=== PATIENT | female | born 1965 | race Caucasian/White ===

== ENCOUNTER 2017-09-07 20:15 | Observation (INO) ==
--- NOTE | 2017-09-07 20:47 | Emergency Department Note ---
Disposition Clinical Impression: Chest pain, Elevated lipase, Syncope, Smoker, Family history of coronary artery disease in mother, History of hypertension, Abnormal EKG, Obesity Disposition: Admitted As Inpatient Referrals: NONE,PCP [Non-Partnered Physician] - [facility] [Outside] Forms: ED Satisfaction Letter General Adult HPI - General Chief complaint: ED Chest Pain Stated complaint: chest pain - History of Present Illness HPI Narrative: 52-year-old female reports emergency department complaining of left-sided chest pain. The chest pain had been sharp. It was brief and has resolved. She was working when it started. She reports she works "[email or web address]". The patient has no known history of coronary artery disease, COPD, emphysema, malignancy, DVT PE or cancer, no history of aneurysms, no history of diabetes hypercholesterolemia or intrathoracic Path [place]. The patient is a smoker. She reports she is concerned about her primary care physician not listening to her complaints. She reports in the past she had had bilateral paresthesias and that the patient did not receive a definitive diagnosis. There is no history of paresthesia today, no troubles walking talking hearing seeing or speaking. No chest trauma fever coughing of blood or syncope. No leg swelling or pain. There is no history of trauma or rash. No upper respiratory symptoms ear pain runny nose or sore throat. No flank pain no urinary symptoms no history of currently. The patient denies acute depression or anxiety. There is no history of suicidality or homicidality. The patient has had no abdominal pain vomiting or diarrhea. No back pain. She has not anticoagulated. She reports she saw her primary care physician this week and was checked for UTI and the urine was negative. There is a history of syncope about a week ago, no trauma. The patient is a smoker, has a history of hypertension, and her mother had early coronary artery disease. - Related Data Previous Rx's Medication Instructions Recorded Ciprofloxacin HCl [Cipro] 500 mg PO BID #20 tablet 11/15/16 Naproxen [Naprosyn] 500 mg PO BID PRN #30 tablet 11/15/16 Ondansetron ODT [Zofran ODT] 4 mg SL Q6HR #14 tab.rapdis 11/15/16 Tamsulosin [Flomax] 0.4 mg PO DAILY #10 capsule 11/15/16 Allergies Allergy/AdvReac Type Severity Reaction Status Date / Time Penicillins [PCN] Allergy Rash Verified 11/15/16 18:15 All systems ED: reviewed and negative except as stated. Past Medical History - Past Medical History Medical history: Reports: hypertension Psychiatric history: Reports: anxiety, depression - Social History Smoking Status: Current every day smoker Smokeless Tobacco Status: No Alcohol use: Reports: none Drug use: Reports: none Physical Exam - General Limitations: no limitations General appearance: alert, in no apparent distress - Head Head exam: atraumatic, normocephalic, normal inspection - Eye Eye exam: Present: normal appearance, PERRL, EOMI - ENT ENT exam: normal exam, normal oropharynx, mucous membranes moist - Neck Neck exam: Present: normal inspection, full ROM, trachea midline - Chest Chest inspection: Present: normal inspection, symmetric chest wall rise. Absent : tenderness - Respiratory Respiratory exam: Present: normal lung sounds bilaterally. Absent: respiratory distress, wheezes, accessory muscle use, prolonged expiratory phase - Cardiovascular Cardiovascular exam: Present: regular rate, normal rhythm, normal heart sounds - Abdominal Exam Abdominal exam: Present: soft, Non-Tender, normal bowel sounds. Absent: tenderness, distention, guarding, rebound, rigidity, pulsatile mass - Extremities Exam Extremities exam: Present: normal inspection, full ROM, normal capillary refill. Absent: tenderness, pedal edema, joint swelling, calf tenderness - Expanded Lower Extremity Exam Lower leg exam: Absent: Homans' sign Neurovascular/Tendon exam: Present: normal capillary refill. Absent: motor deficit, sensory deficit, tendon deficit, extremity cold to touch, pallor - Back Exam Back exam: Present: normal inspection, full ROM. Absent: tenderness, CVA tenderness (R), CVA tenderness (L), vertebral tenderness - Neurological Exam Neurological exam: Present: alert, oriented X3, CN II-XII intact. Absent: motor sensory deficit - Psychiatric Psychiatric exam: Present: normal affect, normal mood - Skin Skin exam: Present: warm, dry, intact, normal color. Absent: rash, cyanosis, diaphoresis, erythema, pallor, mottled Course Vital Signs Temperature 97.8 F 09/07/17 20:59 Pulse Rate 60 09/07/17 20:59 Respiratory Rate 16 09/07/17 20:59 Blood Pressure 115/83 09/07/17 20:59 O2 Sat by Pulse Oximetry 95 09/07/17 20:59 Temperature 98.7 F 09/07/17 20:59 Pulse Rate 60 09/07/17 20:59 Respiratory Rate 16 09/07/17 20:59 Blood Pressure 115/83 09/07/17 20:59 O2 Sat by Pulse Oximetry 95 09/07/17 20:59 Oxygen Delivery Oxygen Delivery Room Air Medical Decision Making - MDM Narrative Medical decision making narrative: On review of the patient's record and EMS record and secondary review with the patient, she describes left chest pain radiating to the neck, it was sharp but was during work activity time. The patient also had a recent syncopal event. The patient has had no recent cardiac testing. She had a remote stress test years ago. The patient family history includes mother with early coronary artery disease. Based on the patient's chest pain, abnormal EKG, history of syncope, early coronary disease in the family/mother, history of hypertension, age, obesity, and nicotine dependence, I thought it would be appropriate to admit the patient to the hospital for observation. Aspirin has been ordered. Of note her lipase is also elevated which may be contributory or an independent factor concerning for intra-abdominal process. I discussed the case with the hospitalist on-call who has accepted the patient to their care. They have requested an ultrasound of the gallbladder. An order has been placed. Further evaluation per the admitting service. - Lab Data Lab results reviewed: Yes I reviewed the patient's lab results. Result diagrams: 09/07/17 21:23 09/07/17 21:23 Lab Results 09/07/17 09/07/17 09/07/17 Range/Units 21:23 21:23 21:23 WBC 8.8 (4.3-11.1) K/mcL RBC 3.87 (3.82-4.97) M/mcL Hgb 12.5 (11.5-15.4) g/dL Hct 37.3 (35.3-44.9) % MCV 96.4 (83.0-100.0) fL MCH 32.3 (28.0-33.3) pg MCHC 33.5 (31.6-35.5) g/dL RDW 12.9 (11.5-14.5) % Plt Count 214 (140-400) K/mcL MPV 8.9 L (9.4-12.4) fL Immature Gran % 0.2 (0-4) % Seg Neutrophils % 53.9 % Lymphocytes % 36.9 % Monocytes % 6.5 % Eosinophils % 2.2 % Basophils % 0.3 % Neutrophils # 4.8 (1.6-8.9) K/mcL Lymphocytes # 3.3 (0.6-4.6) K/mcL Monocytes # 0.6 (0.0-1.3) K/mcL Eosinophils # 0.2 (0.0-0.6) K/mcL Basophils # 0.0 (0.0-0.2) K/mcL PT 10.7 (9.4-12.1) Seconds INR 1.0 APTT 34.3 (26.0-36.0) Seconds D-Dimer (0-500) ng/mLFEU Sodium 141 (136-145) mEq/L Potassium 4.0 (3.5-4.5) mEq/L Chloride 112 H (98-109) mEq/L Carbon Dioxide 23 (19-29) mEq/L BUN 22 H (7-20) mg/dL Creatinine 0.79 (0.57-1.11) mg/dL Est GFR ( Amer) > 60 (> 60) Est GFR (Non-Af Amer) > 60 (> 60) BUN/Creatinine Ratio 28 H (6-26) Glucose 105 H (70-99) mg/dL Calculated Osmolality 296 (280-300) Calcium 8.4 L (8.6-10.8) mg/dL Total Bilirubin 0.2 (0.2-1.2) mg/dL Direct Bilirubin 0.1 (0.0-0.5) mg/dL Indirect Bilirubin 0.1 (0.0-1.2) mg/dL AST 17 (5-34) Units/L ALT 12 (0-55) Units/L Alkaline Phosphatase 84 (38-126) Units/L Troponin I (0-0.03) ng/mL C-Reactive Protein 5 H (Less than 5) mg/L Serum Total Protein 6.4 (6.0-8.3) g/dL Albumin 3.5 (3.5-5.0) g/dL Globulin 2.9 (2.4-3.5) g/dL Albumin/Globulin Ratio 1.2 (1.1-2.2) Lipase 114 H (8-78) Units/L 09/07/17 09/07/17 Range/Units 21:23 Unknown WBC (4.3-11.1) K/mcL RBC (3.82-4.97) M/mcL Hgb (11.5-15.4) g/dL Hct (35.3-44.9) % MCV (83.0-100.0) fL MCH (28.0-33.3) pg MCHC (31.6-35.5) g/dL RDW (11.5-14.5) % Plt Count (140-400) K/mcL MPV (9.4-12.4) fL Immature Gran % (0-4) % Seg Neutrophils % % Lymphocytes % % Monocytes % % Eosinophils % % Basophils % % Neutrophils # (1.6-8.9) K/mcL Lymphocytes # (0.6-4.6) K/mcL Monocytes # (0.0-1.3) K/mcL Eosinophils # (0.0-0.6) K/mcL Basophils # (0.0-0.2) K/mcL PT (9.4-12.1) Seconds INR APTT (26.0-36.0) Seconds D-Dimer 317 (0-500) ng/mLFEU Sodium (136-145) mEq/L Potassium (3.5-4.5) mEq/L Chloride (98-109) mEq/L Carbon Dioxide (19-29) mEq/L BUN (7-20) mg/dL Creatinine (0.57-1.11) mg/dL Est GFR ( Amer) (> 60) Est GFR (Non-Af Amer) (> 60) BUN/Creatinine Ratio (6-26) Glucose (70-99) mg/dL Calculated Osmolality (280-300) Calcium (8.6-10.8) mg/dL Total Bilirubin (0.2-1.2) mg/dL Direct Bilirubin (0.0-0.5) mg/dL Indirect Bilirubin (0.0-1.2) mg/dL AST (5-34) Units/L ALT (0-55) Units/L Alkaline Phosphatase (38-126) Units/L Troponin I 0.00 (0-0.03) ng/mL C-Reactive Protein (Less than 5) mg/L Serum Total Protein (6.0-8.3) g/dL Albumin (3.5-5.0) g/dL Globulin (2.4-3.5) g/dL Albumin/Globulin Ratio (1.1-2.2) Lipase (8-78) Units/L - Radiology Data Radiology results reviewed: Yes I reviewed the patient's radiology results.
[2017-09-07 21:31] LABS: Basophils % 0.3 %; Eosinophils # 0.2 K/mcL (0.0-0.6); Eosinophils % 2.2 %; Hematocrit 37.3 % (35.3-44.9); Hemoglobin 12.5 g/dL (11.5-15.4); Immature Granulocytes % 0.2 % (0-4); Lymphocytes # 3.3 K/mcL (0.6-4.6); Lymphocytes % 36.9 %; Mean Corpuscular HGB Conc 33.5 g/dL (31.6-35.5); Mean Corpuscular Hemoglobin 32.3 pg (28.0-33.3); Mean Corpuscular Volume 96.4 fL (83.0-100.0); Mean Platelet Volume 8.9 fL (9.4-12.4); Monocytes # 0.6 K/mcL (0.0-1.3); Monocytes % 6.5 %; Neutrophils # 4.8 K/mcL (1.6-8.9); Platelet Count 214 K/mcL (140-400); Red Blood Count 3.87 M/mcL (3.82-4.97); Red Cell Distribution Width 12.9 % (11.5-14.5); Segmented Neutrophils % 53.9 %
[2017-09-07 21:37] LABS: Prothrombin Time 10.7 Seconds (9.4-12.1)
[2017-09-07 21:39] LABS: Activated Partial Thrombo Time 34.3 Seconds (26.0-36.0)
[2017-09-07 21:51] LABS: Alanine Aminotransferase 12 Units/L (0-55); Albumin 3.5 g/dL (3.5-5.0); Albumin/Globulin Ratio 1.2 (1.1-2.2); Alkaline Phosphatase 84 Units/L (38-126); Aspartate Amino Transferase 17 Units/L (5-34); BUN/Creatinine Ratio 28 (6-26); Bilirubin,Indirect 0.1 mg/dL (0.0-1.2); Bilirubin,Total 0.2 mg/dL (0.2-1.2); Blood Urea Nitrogen 22 mg/dL (7-20); C-Reactive Protein 5 mg/L (Less than 5); Calcium 8.4 mg/dL (8.6-10.8); Carbon Dioxide 23 mEq/L (19-29); Chloride 112 mEq/L (98-109); Globulin 2.9 g/dL (2.4-3.5); Glucose 105 mg/dL (70-99); Lipase 114 Units/L (8-78); Osmolality,Calculated 296 (280-300); Sodium 141 mEq/L (136-145); Total Protein 6.4 g/dL (6.0-8.3); eGFR For African Americans > 60 (> 60); eGFR For Non-African Americans > 60 (> 60)
[2017-09-07 21:55] LABS: Bilirubin,Direct 0.1 mg/dL (0.0-0.5)
[2017-09-07] MEDS ORDERED: Aspirin 325 MG TABLET PO ONE (22:34)
--- NOTE | 2017-09-08 02:31 | Internal Med History&Physical ---
Date of Encounter: 09/08/17 Time of Encounter: 02:29 Assessment and Plan (1) Chest pain Current visit: Yes Status: Acute She does have substernal chest pain that is worse with exertion that self resolved She does have risk factors including obesity, smoking, family history, hypertension Initial troponins and d-dimer were negative and chest x-ray did not demonstrate any acute abnormalities We will trend the troponins and obtain echocardiogram, lipid panel Start her on low-dose aspirin and Lipitor; no beta jeffrey in setting of borderline bradycardia Consider outpatient stress test if her symptoms recur Qualifiers: Qualified Code(s): R07.9 - Chest pain, unspecified (2) Syncope Current visit: Yes Status: Acute She had one episode of syncope one week ago and has not had any workup We will order a echocardiogram and bilateral carotid duplex Start her on aspirin and Lipitor as above Qualifiers: Qualified Code(s): R55 - Syncope and collapse (3) Elevated lipase Current visit: Yes Status: Acute Lipase was mildly elevated at 114 but she does not have any epigastric pain worse with food or nausea Ultrasound of the gallbladder was ordered to rule out gallstones as a cause Will recheck the lipase level in the morning to confirm its elevation (4) Hypertension Current visit: Yes Status: Chronic According to her chart, she is not on any antihypertensives at the moment Her blood pressure has been stable since admission, will monitor closely Qualifiers: Hypertension type: essential hypertension Qualified Code(s): I10 - Essential (primary) hypertension (5) DVT prophylaxis Current visit: Yes Status: Acute Heparin 5000 units BID Internal Medicine - H&P: HPI Chief complaint: chest pain Admitted From: Home Plans for Post Hospital Care: Home History of present illness: Ms. Bedolla is a 52 year old female who presents with left-sided chest pain that started earlier yesterday while at work. She states it was sharp and radiated to the left side of her neck. She works at [employer] and states that her job requires her to be on her feet and she was exerting herself when the pain started. The episode lasted about 15 minutes and resolved on its own. She has never had anything like this happen in the past and denies any cardiac history. She does claim to have a stress test many years ago but does not remember the results. Of note, patient did have a syncopal episode last week and this was not worked up. She does complain of lightheadedness and also is chronically diaphoretic. Her medical history includes hypertension, anxiety, depression and she does state that her mother had heart disease at an early age, but does not remember exactly when. Patient denies any shortness of breath, nausea, vomiting, fever, chills, diarrhea. Past Med Surg Social Fam HX - Past Medical History Medical history: hypertension Psychiatric history: anxiety, depression - Past Surgical History Surgical History: - Social History Smoking Status: Current every day smoker Smokeless Tobacco Status: No Alcohol use: none Drug use: none - Family History Father Hx Family Respiratory Disorders: Yes (emphasema) Mother Hx Family Cardiac Disorders: Yes (chf) Hx Family Cancer: Yes (breast) Internal Medicine - H&P: Meds ALPRAZolam [Xanax 1 MG Tablet] 2 mg PO HS 09/07/17 [History] Cholecalciferol (D-3) [Vitamin D] 1,000 unit PO DAILY 09/07/17 [History] Escitalopram [Lexapro] 20 mg PO DAILY 09/07/17 [History] HYDROcodone/Acet 5/325 mg [[place] 5-325 mg] 1 tab PO Q4H PRN 09/07/17 [History] Meloxicam 15 mg PO DAILY 09/07/17 [History] Omeprazole [PriLOSEC] 40 mg PO DAILY 09/07/17 [History] Ondansetron HCl [Zofran] 8 mg PO DAILY PRN 09/07/17 [History] Pregabalin [Lyrica] 75 mg PO BID 09/07/17 [History] Topiramate [Topamax] 50 mg PO HS 09/07/17 [History] 3 Allergy/AdvReac Type Severity Reaction Status Date / Time acetaminophen [From Percocet] Allergy Congested Verified 09/07/17 23:26 gabapentin Allergy Confusion Verified 09/07/17 23:26 Oxycodone [From Percocet] Allergy Congested Verified 09/07/17 23:26 Penicillins [PCN] Allergy Rash Verified 11/15/16 18:15 All Systems PM: A 10-system review of systems was performed and is negative for pertinent findings except as documented above in the HPI. - Constitutional Constitutional: no chills, no fever(s), no night sweats - EENT Eyes: no change in vision, no discharge, no pain, no photophobia Ears: no ear discharge, no ear pain, no tinnitus Nose, mouth and throat: no dysphagia, no nasal discharge, no neck pain, no sore throat - Cardiovascular Cardiovascular ROS IM: chest pain, syncope, no diaphoresis, no dyspnea, no dyspnea on exertion, no lightheadedness, no palpitations - Respiratory Respiratory: no cough, no dyspnea, no wheezing, no excessive phlegm production - Gastrointestinal Gastrointestinal: no abdominal pain, no diarrhea, no hematemesis, no hematochezia, no melena, no nausea, no vomiting - Genitourinary Genitourinary: no change in urinary stream, no dysuria, no flank pain, no hematuria - Musculoskeletal Musculoskeletal ROS IM: no numbness, no tingling - Integumentary Integumentary IM: no rash, no unusual bruising - Neurological Neurological ROS: no confusion, no convulsions, no focal weakness, no numbness, no tingling, no tremor(s) - Hematologic/Lymphatic Hematologic/Lymphatic: no easy bruising - Constitutional Vitals: Temp Pulse Resp BP Pulse Ox 98.7 F 60 16 115/83 95 09/07/17 20:59 09/07/17 20:59 09/07/17 20:59 09/07/17 20:59 09/07/17 20:59 General appearance: Present: cooperative, pleasant, no acute distress, obese, answers questions appropriately - Head Head exam: Present: atraumatic, normocephalic - Eye Eye exam: Present: PERRL, conjuntiva pink, sclera anicteric - Neck Neck exam general surgery: Present: supple, trachea midline. Absent: lymphadenopathy - Respiratory Respiratory exam: Present: CTAB. Absent: accessory muscle use, rales, rhonchi, wheezes - Cardiovascular Cardiovascular exam: Present: RRR, +S1, +S2. Absent: diastolic murmur, gallop, rubs, systolic murmur - GI/Abdominal GI/Abdominal exam: Present: normal bowel sounds, soft, no peritoneal signs. Absent: distended, tenderness - Extremities Exam Extremities exam: Present: warm, radial pulses palpable and symmetrical. Absent : calf tenderness, cyanotic, pedal edema - Neurological Exam Neurological exam: Present: alert. Absent: facial droop, speech deficit - Skin Skin exam: Present: dry, intact Internal Med - H&P Results - Labs CBC & Chem 7: 09/07/17 21:23 09/07/17 21:23
[2017-09-08] MEDS ORDERED: Acetaminophen 325 MG TABLET PO PRN (02:54)
[2017-09-08] MEDS ORDERED: Naloxone 0.4 MG/ML INJ IVP PRN (02:54)
[2017-09-08] MEDS ORDERED: Ondansetron ODT 4 MG TAB.RAPDIS SL PRN (02:54)
[2017-09-08] MEDS ORDERED: Nitroglycerin 0.4 MG TAB.SUBL SL PRN (02:59)
[2017-09-08] MEDS ORDERED: *HR* HYDROcodone/Acet 5/325 mg TABLET PO PRN (02:59)
[2017-09-08 04:10] LABS: Chol/HDL Ratio 5.1 (0-4.9)
[2017-09-08] MEDS ORDERED: *HR* Heparin 5,000 UNIT/ML VIAL SQ SCH (06:00)
[2017-09-08] MEDS ORDERED: Pregabalin 75 MG CAPSULE PO SCH (09:00)
[2017-09-08] MEDS ORDERED: Aspirin 81 MG TAB.CHEW PO SCH (09:00)
--- NOTE | 2017-09-08 12:40 | Cardiology Consult Note ---
Date of Encounter: 09/08/17 Time of Encounter: 12:38 Assessment and Plan (1) Chest pain Current Visit: Yes Status: Acute Presented with midsternal chest pain with exertion while at work. Reports it resolved with she "calmed herself down". No recurrence. Troponins negative x 3. Echo EF preserved with no significant findings. EKG nonspecific ST segments, no concern for acute ischemic changes. Risk factors for CAD include obesity, tobacco abuse, HTN and family hx. Hemoptysis x 3 weeks. Work-up per primary team. Pt already ate today, discussed staying for 2 day stress test, but she prefers to go home and follow-up as outpt for outpt stress test which seems reasonable. Anticipate sign off once seen and evaluated by Dr. Gonzalez. Qualifiers: Chest pain type: unspecified Qualified Code(s): R07.9 - Chest pain, unspecified Discussion w patient/family: The assessment and plan as outlined above was discussed with the patient and/or family members who expressed understanding and agreement. All questions were answered. Thank you for involving us in the care of your patient. Please call with any questions. I will discuss all the above with Dr. Gonzalez and make changes as necessary. History of Present Illness Consult date: 09/08/17 Requesting physician: Thomas Fountain Consult reason: Chest pain Chief complaint: chest pain History of present illness: Ms. Bedolla is a 52 year old female with PMH of tobacco abuse, HTN who presented with left-sided chest pain that started earlier yesterday while at work. She states it was sharp and radiated to the left side of her neck. She works at [employer] and states that her job requires her to be on her feet and she was exerting herself when the pain started. The episode lasted about 15 minutes and resolved on its own once she calmed herself down. She does report being stressed at the time. She has never had anything like this happen in the past and denies any cardiac history. Patient reportedly had a syncopal episode last week and this was not worked up. She does complain of intermittent lightheadedness and also is chronically diaphoretic and reports hemoptysis over the past 3 weeks. She has family hx of CAD with her brother having his first MD in his early 50s. Troponins negative. EKG without any ischemic changes. Cardiology consulted for further recommendations. Reports no recurrent chest pain since admission. Past Med Surg Social Fam HX - Past Medical History Medical history: hypertension Psychiatric history: anxiety, depression - Past Surgical History Surgical History: - Social History Smoking Status: Current every day smoker Smokeless Tobacco Status: No Alcohol use: none Drug use: none - Family History Father Hx Family Respiratory Disorders: Yes (emphasema) Mother Hx Family Cardiac Disorders: Yes (chf) Hx Family Cancer: Yes (breast) Medications and Allergies ALPRAZolam [Xanax 1 MG Tablet] 2 mg PO HS 09/07/17 [History] Cholecalciferol (D-3) [Vitamin D] 1,000 unit PO DAILY 09/07/17 [History] Escitalopram [Lexapro] 20 mg PO DAILY 09/07/17 [History] HYDROcodone/Acet 5/325 mg [[place] 5-325 mg] 1 tab PO Q4H PRN 09/07/17 [History] Meloxicam 15 mg PO DAILY 09/07/17 [History] Omeprazole [PriLOSEC] 40 mg PO DAILY 09/07/17 [History] Ondansetron HCl [Zofran] 8 mg PO DAILY PRN 09/07/17 [History] Pregabalin [Lyrica] 75 mg PO BID 09/07/17 [History] Topiramate [Topamax] 50 mg PO HS 09/07/17 [History] 3 Allergy/AdvReac Type Severity Reaction Status Date / Time acetaminophen [From Percocet] Allergy Congested Verified 09/07/17 23:26 gabapentin Allergy Confusion Verified 09/07/17 23:26 Oxycodone [From Percocet] Allergy Congested Verified 09/07/17 23:26 Penicillins [PCN] Allergy Rash Verified 11/15/16 18:15 All Systems Review: A 10-system review of systems was performed and is negative for pertinent findings except as documented above in the HPI. - Cardiovascular Cardiovascular: as per HPI, chest pain with exertion, lightheadedness - Respiratory Respiratory: hemoptysis Physical Examination Vital Signs, Last 4 Hours Temp Pulse Resp BP Pulse Ox 09/08/17 12:11 97.6 F 62 17 120/59 94 Vital Signs Temp Pulse Resp BP Pulse Ox 09/08/17 12:11 97.6 F 62 17 120/59 94 09/08/17 07:22 98.5 F 68 17 123/81 94 09/08/17 04:44 102/69 09/08/17 03:29 97.7 F 64 16 89/55 94 09/07/17 20:59 98.7 F 60 16 115/83 94 Intake and Output 09/07/17 09/08/17 09/08/17 23:59 07:59 15:59 Other: Meal NPO Weight 92.533 kg 100.062 kg Patient Weight 09/08/17 23:59 Weight 100.062 kg General: Conversant, No Apparent Distress HEENT: Atraumatic, Normocephaly, Mucus Membranes Moist Neck: No JVD, Normal carotid pulses Cardiac: Reg Rate and Rhythm, Normal S1 and S2, No Murmur Lungs: Normal Breath Sounds, No Wheeze, Rales, Rhonchi Neuro: Alert and responsive, No focal deficits noted Abdomen: Soft, Non-Tender Skin: No rashes noted on visualized skin Musculoskeletal: No Chest Wall Tenderness Extremities: No Clubbing, No Cyanosis, No Edema, Normal Pulses Results 09/07/17 21:23 09/07/17 21:23 Lab Results 09/07/17 09/08/17 09/08/17 Unknown 03:31 03:31 D-Dimer 317 Troponin I 0.00 Lipase 28 09/08/17 11:11 D-Dimer Troponin I 0.00 Lipase Short CBC 09/07/17 Range/Units 21:23 WBC 8.8 (4.3-11.1) K/mcL Hgb 12.5 (11.5-15.4) g/dL Hct 37.3 (35.3-44.9) % Plt Count 214 (140-400) K/mcL Neutrophils # 4.8 (1.6-8.9) K/mcL BMP 09/07/17 Range/Units 21:23 Sodium 141 (136-145) mEq/L Potassium 4.0 (3.5-4.5) mEq/L Chloride 112 H (98-109) mEq/L Carbon Dioxide 23 (19-29) mEq/L BUN 22 H (7-20) mg/dL Creatinine 0.79 (0.57-1.11) mg/dL Glucose 105 H (70-99) mg/dL Calcium 8.4 L (8.6-10.8) mg/dL Cardiac Enzymes 09/08/17 09/08/17 09/07/17 Range/Units 11:11 03:31 21:23 Troponin I 0.00 0.00 0.00 (0-0.03) ng/mL Liver Function 09/07/17 Range/Units 21:23 Total Bilirubin 0.2 (0.2-1.2) mg/dL Direct Bilirubin 0.1 (0.0-0.5) mg/dL AST 17 (5-34) Units/L ALT 12 (0-55) Units/L Alkaline Phosphatase 84 (38-126) Units/L Albumin 3.5 (3.5-5.0) g/dL Impressions Chest X-Ray 09/07/17 20:17 IMPRESSION: No acute cardiopulmonary abnormality. D/ / Ricco Alvares MD / Ricco Alvares MD Interpreting Provider: Ricco Alvares MD Abdomen Ultrasound 09/08/17 09:00 IMPRESSION: No cholelithiasis. No biliary dilation. D/ / Cecil Albrecht MD / Cecil Albrecht MD Interpreting Provider: Cecil Albrecht MD Echocardiogram 09/08/17 10:39 Impressions: Normal LV systolic function, LVEF 60-65%. Normal left ventricular diastolic function. Normal right ventricular size and function. No significant valvular dysfunction. No evidence of pulmonary hypertension. Left Ventricular Wall Motion: Rest Echo Findings All wall segments showed normal motion. Findings: Study Quality * Technically adequate exam. ECG Findings * Sinus bradycardia. Left Ventricle * Normal LV systolic function, LVEF 60-65%. * Normal LV chamber size and wall thickness. * Normal left ventricular diastolic function. Right Ventricle * Normal right ventricular size and function. Left Atrium * Normal left atrial size. Right Atrium * Normal right atrial size. Aorta * Normally sized aortic root. Pericardium * There is no pericardial effusion present. IVC * The IVC is not dilated. Aortic Valve * Aortic valve not well visualized. * No aortic stenosis. * No aortic regurgitation. Mitral Valve * Normal mitral valve structure. * No mitral stenosis. * Trace mitral regurgitation. Tricuspid Valve * Normal tricuspid valve structure. * No tricuspid stenosis. * Trace tricuspid regurgitation. * No evidence of pulmonary hypertension. Pulmonic Valve * Pulmonic valve not well visualized. * No pulmonic stenosis. * No pulmonic regurgitation. Active Medications Acetaminophen (Tylenol) 650 mg PO Q6HR PRN PRN Reason: Mild Pain (1-3) Stop: 03/10/18 02:55 Hydrocodone Bitart/Acetaminophen ([place] 5-325 Mg) 1 tab PO Q4H PRN PRN Reason: Pain Stop: 03/10/18 03:00 Aspirin (Aspirin) 81 mg PO DAILY [facility] Stop: 03/10/18 09:01 Last Admin: 09/08/17 10:51 Dose: 81 mg Escitalopram Oxalate (Lexapro) 20 mg PO DAILY [facility] Stop: 03/10/18 09:01 Last Admin: 09/08/17 10:52 Dose: Not Given Heparin Sodium (Porcine) (Heparin) 5,000 unit SQ Q12HCO [facility] Stop: 03/10/18 06:01 Last Admin: 09/08/17 04:45 Dose: Not Given Naloxone HCl (Narcan) 0.4 mg IVP Q2MIN PRN PRN Reason: Opioid Reversal Stop: 03/10/18 02:55 Nitroglycerin (Nitroglycerin) 0.4 mg SL Q5MIN PRN PRN Reason: Chest Pain Stop: 03/10/18 03:00 Omeprazole (Prilosec) 40 mg PO 0630 [facility] Stop: 03/10/18 06:31 Last Admin: 09/08/17 10:52 Dose: 40 mg Ondansetron HCl (Zofran Odt) 4 mg SL Q8HR PRN PRN Reason: Nausea And Vomiting Stop: 03/10/18 02:55 Pregabalin (Lyrica) 75 mg PO BID [facility] Stop: 03/10/18 09:01 Last Admin: 09/08/17 10:51 Dose: 75 mg Topiramate (Topamax) 50 mg PO HS [facility] Stop: 03/10/18 21:01 - Imaging and Cardiology Echo: report reviewed - EKG Interpretation EKG results cardiology: personally reviewed (SR, no ischemic changes), other ( 12 hr tele AVG HR 60, SR, no significant pauses or arrhythmias.) Consult Discharge Plan - Plan Referrals: Mikayla Jameson, CCIE [Primary Care Provider] -
[2017-09-08 16:13] VITALS: BP 128/86
--- NOTE | 2017-09-08 16:37 | Discharge Summary ---
Date of Encounter: 09/08/17 Time of Encounter: 16:35 - Discharge Diagnosis (1) Chest pain Priority: Primary Status: Suspected Qualifiers: Chest pain type: chest pain due to myocardial ischemia Ischemic chest pain type: unstable angina pectoris Qualified Code(s): I20.0 - Unstable angina (2) Hypertension Priority: Secondary Status: Chronic Qualifiers: Hypertension type: essential hypertension Qualified Code(s): I10 - Essential (primary) hypertension (3) Syncope Priority: Secondary Status: Acute Qualifiers: Syncope type: vasovagal syncope Qualified Code(s): R55 - Syncope and collapse (4) Emphysema/COPD Priority: Secondary Status: Chronic Qualifiers: Emphysema type: panlobular Qualified Code(s): J43.1 - Panlobular emphysema (5) Thyroid enlarged Priority: Secondary Status: Chronic (6) Obesity Priority: Secondary Status: Chronic Qualifiers: Obesity classification: adult class 2 (BMI 35 ? 39.9) Body mass index: BMI 35.0-35.9 Qualified Code(s): E66.9 - Obesity, unspecified; Z68.35 - Body mass index (BMI) 35.0-35.9, adult; Z68.35 - Body mass index (BMI) 35.0-35.9, adult (7) Tobacco abuse Priority: Secondary Status: Chronic - Discharge Medications Home Medications: ALPRAZolam [Xanax 1 MG Tablet] 2 mg PO HS 09/07/17 [History] Cholecalciferol (D-3) [Vitamin D] 1,000 unit PO DAILY 09/07/17 [History] Escitalopram [Lexapro] 20 mg PO DAILY 09/07/17 [History] HYDROcodone/Acet 5/325 mg [[place] 5-325 mg] 1 tab PO Q4H PRN 09/07/17 [History] Omeprazole [PriLOSEC] 40 mg PO DAILY 09/07/17 [History] Ondansetron HCl [Zofran] 8 mg PO DAILY PRN 09/07/17 [History] Pregabalin [Lyrica] 75 mg PO BID 09/07/17 [History] Topiramate [Topamax] 50 mg PO HS 09/07/17 [History] Aspirin 81 mg PO DAILY tab.chew 09/08/17 [Rx] Allergies/Adverse Reactions: 3 Allergy/AdvReac Type Severity Reaction Status Date / Time acetaminophen [From Percocet] Allergy Congested Verified 09/07/17 23:26 gabapentin Allergy Confusion Verified 09/07/17 23:26 Oxycodone [From Percocet] Allergy Congested Verified 09/07/17 23:26 Penicillins [PCN] Allergy Rash Verified 11/15/16 18:15 Procedures/tests Complete & Pending: Procedures Performed prior 72 hours Category Date Time Status CT chest w con [CT] Routine Cat Scan 09/08/17 14:[address] head/brain wo con [CT] Routine Cat Scan 09/08/17 14:13 Completed EV carotid duplex imaging BI Routine Y 09/08/17 10:39 Completed EV echocardiogram Routine Y 09/08/17 10:39 Completed Date of admission: 09/07/17 23:17 Primary care physician: Mikayla Jameson, Consults: 09/08/17 08:22 Consult to Cardiology [CONS] Routine Comment: Consulting Provider: [facility] [place] Reason for Consult: chest pain Time Notified: 08:20 Call Completed: Yes Discharging clinician: Thomas Fountain Anticipated date of discharge: 09/08/17 - Patient Status Disposition: Home, Self-Care Condition: Good Functional capacity at discharge: independent ambulation Overall status at discharge: patient is progressing back to baseline - Discharge Instructions Instructions: Chest Pain (DC), Chronic Hypertension (DC) Follow Up With: Mikayla Jameson CNP [Primary Care Provider] - (Follow up in 1-2 weeks ) Cruz Borges MD [Partnered Physician] - (Make appt for 2-3 weeks to evaluate episodes of dizziness.) Bryan Chiu MD [Partnered Physician] - (Follow up as arranged by cardiology) - Diet and Activity Activity: increase activity as tolerated, other (Limit strenous work/exercise until complete stress test.) Diet: advance to your usual diet Hospital course: Ms. Bedolla is a 52 year old female presented to ED last night with complaints of L side chest and neck pain. Symptoms were sharp in nature and associated with exertion at work. She was evaluated in ED and subsequently placed in observation for further treatment. Ms Bedolla was placed in observation on [facility]. Troponins were negative. She was seen by cardiology and echo was negative. She is to have a stress test as outpatient and not have excessive exertion till then. She had no further chest pain after admit. She also related issues with syncope and dizziness. Carotids were done and results showed R ICA 40-59% and L normal. CT head was nonacute. She was also having issues with some hemoptysis (had a "cold" prior to it) and CT chest with contrast showed mild emphysema and enlarged L thyroid lobe. At this time she is asymptomatic. She is afebrile with stable vitals. She will be discharged home with follow up with PCP, card and neuro. - Time Spent with Patient Total time spent providing and/or coordinating discharge services: - Constitutional Vitals: Temp Pulse Resp BP Pulse Ox 97.4 F L 62 17 128/86 97 09/08/17 16:12 09/08/17 16:12 09/08/17 16:12 09/08/17 16:12 09/08/17 16:12 General appearance: Present: cooperative, pleasant, obese, answers questions appropriately - Head Head exam: Present: normocephalic - Eye Eye exam: Present: conjuntiva pink - ENT ENT exam: Present: mucous membranes dry - Respiratory Additional comments: Scant bibasilar rales. No wheeze. - Cardiovascular Cardiovascular exam: Present: RRR. Absent: systolic murmur, tachycardia - GI/Abdominal GI/Abdominal exam: Present: soft. Absent: tenderness - Extremities Exam Extremities exam: Present: warm. Absent: tenderness - Neurological Exam Neurological exam: Present: alert, oriented X3, no focal deficits, strengths equal and symetr throughout - Skin Skin exam: Present: warm. Absent: rash
[2017-09-08] MEDS ORDERED: Topiramate 25 MG TABLET PO SCH (21:00)
--- NOTE | 2017-09-08 22:16 | Event Note ---
Date of Encounter: 09/08/17 Time of Encounter: 22:15 Patient seen and examined with manager medical. Agree with assessment and plan
--- NOTE | 2017-09-09 19:26 | Electrocardiograph Report ---
[address] [address] Test Date: 2017-09-07 Pat Name: Lashonda Bedolla Department: [id number] Room: 3B Gender: F Clinical Esthetician: HASMUKH : 1965 Requested By: Héctor Fox Order Number: [id number] Reading MD: Bryan Chiu MD Measurements Intervals [place] Rate: 59 P: 56 WI: 182 QRS: 15 QRSD: 77 T: 40 QT: 416 QTc: 415 Interpretive Statements SINUS BRADYCARDIA Electronically Signed On 09-09-2017 19:24:24 EDT by Bryan Chiu MD
== END 2017-09-08 17:10 | disposition home or self-care (01) ==
LOC: EMEROO 20:15 → 3BNU 20:15
PROVIDERS: ADMIT Internal Medicine; ATTEND Registered Nurse